=== PATIENT | male | born 1990 | race Caucasian/White ===

== ENCOUNTER 2017-01-05 13:08 | Emergency (ER) | payer MEDICARE, OTHER ==
[~2017-01-05] VITALS: Ht 180.3 cm; Wt 90.7 kg
[2017-01-05] MEDS ORDERED: DEPAKOTE500 MG PO (13:24)
[2017-01-05] MEDS ORDERED: TRAZODONE HCL100 MG PO (13:25)
[2017-01-05] MEDS ORDERED: ATIVAN1 MG PO (14:59)
== END 2017-01-05 15:19 | disposition home or self-care (01) ==
LOC: ED 13:08
DX: F29 Unspecified psychosis not due to a substance or known physiological condition (principal); Z00.8 Encounter for other general examination; F31.9 Bipolar disorder, unspecified; F20.9 Schizophrenia, unspecified; F17.200 Nicotine dependence, unspecified, uncomplicated; Z88.0 Allergy status to penicillin; Z79.899 Other long term (current) drug therapy
CPT/HCPCS: 80053; 80176; 81001; 84443; 85025; 99283; G0480